=== PATIENT | female | born 1985 | race Caucasian/White ===

== ENCOUNTER → 2018-07-14 09:14 | Outpatient (CLI) | payer OTHER, SELFPAY ==
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
== END ==
PROVIDERS: PCP Internal Medicine
DX: M25.551 Pain in right hip (principal)
CPT/HCPCS: 73502

== ENCOUNTER → 2018-09-07 15:46 | Outpatient (CLI) | payer OTHER, BC, SELFPAY ==
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
== END ==
PROVIDERS: Family Provider Internal Medicine; PCP Internal Medicine; Visit Provider Physician Assistant
DX: M54.5 Low back pain (principal)
CPT/HCPCS: 72148; 76376

== ENCOUNTER 2018-10-27 16:30 | Outpatient (RCR) | payer OTHER, BC, SELFPAY | END 2018-10-27 16:35 | disposition home or self-care (01) | LOC: PT 16:30 | PROVIDERS: Family Provider Internal Medicine; PCP Internal Medicine; Visit Provider Orthopaedic Surgery Hand Surgery | DX: M25.551 Pain in right hip (principal) | CPT/HCPCS: 97010; 97012; 97014; 97033; 97035; 97110; 97140; 97163; 97164; G0283 ==

== ENCOUNTER → 2018-12-21 15:43 | Outpatient (POV) | payer SELFPAY | PROVIDERS: Visit Provider Dermatology | DX: Z00.00 Encounter for general adult medical examination without abnormal findings (principal) ==

== ENCOUNTER → 2019-01-13 09:34 | Outpatient (CLI) | payer OTHER, BC, SELFPAY ==
--- NOTE | 2019-01-13 09:37 | MR_ITS ---
MR hip RT wo con HISTORY: Constant right hip pain ITS.REASON: RIGHT HIP PAIN ORDERING PHYSICIAN: Jam Nicole PATIENT AGE: 33 years COMPARISON: 07/14/2018 TECHNIQUE: Routine multiplanar multiecho sequences are performed without contrast FINDINGS: No fracture or dislocation. No evidence of avascular necrosis. No bone marrow edema. No hip joint effusion. No significant degenerative change. Unremarkable appearance of the adjacent soft tissues IMPRESSION: Negative MRI of the right hip
== END ==
PROVIDERS: PCP Internal Medicine; Visit Provider Orthopaedic Surgery
DX: M25.551 Pain in right hip (principal)
CPT/HCPCS: 73721

== ENCOUNTER → 2020-06-01 13:02 | Outpatient (CLI) | payer BC, SELFPAY ==
--- NOTE | 2020-06-01 | XR_ITS ---
PROCEDURE: XR HIP RT 2-3V W/PELVIS CLINICAL INDICATION: RIGHT HIP PAIN COMPARISON: HIPCMRT XR hip RT 2-3V w/pelvis from 07/14/2018 FINDINGS: No fracture or dislocation is evident. No significant degenerative change. No lytic or blastic change. Unremarkable soft tissues. There is an IUD in place IMPRESSION: Negative right hip Dictated by: Archie Altman MD 06/01/2020 14:47 Electronically signed by Archie Altman MD in [place] 06/01/2020 14:47
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
--- NOTE | 2020-06-01 13:30 | IR_ITS ---
PROCEDURE: IR ARTHROGRAM HIP RT CLINICAL INDICATION: RIGHT HIP PAIN COMPARISON: HIPCMRT XR hip RT 2-3V w/pelvis from 07/14/2018 HIPRTWO MR hip RT wo con from 01/13/2019 MR HIP RT W CON from 06/01/2020 FINDINGS: Fluoroscopy time: 1 minutes and 27 seconds Technique: Following obtaining informed consent and time-out procedure with fluoroscopic guidance and local anesthesia with 1 percent buffered lidocaine, a 22 gauge spinal needle was inserted into the right hip joint capsule via the anterior approach. Approximately 10 mL of a mixture of Optiray 320, gadolinium and 1 %lidocaine was injected into the hip joint. The patient tolerated the procedure well without evidence of immediate complication. The patient was then taken to MRI where MR arthrogram protocol images were performed There was normal localization of contrast within the right hip joint capsule and within the hip. Contrast flowed freely. IMPRESSION: Unremarkable right hip arthrogram. Please see MRI arthrogram report for further detail. Dictated by: Archie Altman MD 06/06/2020 09:55 Electronically signed by Archie Altman MD in [place] 06/06/2020 09:55
== END ==
PROVIDERS: PCP Internal Medicine; Visit Provider Physical Medicine & Rehabilitation
DX: M25.551 Pain in right hip (principal)
CPT/HCPCS: 73502; 73525; 73722; Q9967

== ENCOUNTER → 2020-07-25 16:37 | Outpatient (CLI) | payer BC, SELFPAY ==
[2020-07-27 13:18] LABS: Covid-19 Nasal PCR Sendout Lex NOT DETECTED
== END ==
PROVIDERS: PCP Internal Medicine; Visit Provider Nurse Practitioner Family
DX: Z03.818 Encounter for observation for suspected exposure to other biological agents ruled out (principal)
CPT/HCPCS: U0004

== ENCOUNTER 2020-07-28 20:42 | Emergency (ER) | payer BC, SELFPAY ==
[2020-07-28 20:57] VITALS: BP 110/77; PULSE 96; RESP 20; O2SAT 100; BMI 25.8
--- NOTE | 2020-07-28 21:00 | HMH.EDUTC ---
[facility] Disposition Clinical Impression: Sore throat Sinusitis Qualifiers: Sinusitis location: unspecified location Chronicity: unspecified Qualified Code(s): J32.9 - Chronic sinusitis, unspecified Disposition: Home, Self-Care Condition on Discharge: Good Instructions: Sinusitis, Sinus Headache, DI for Sinusitis, Amoxicillin and Clavulanic Acid Additional Instructions: *Monitor Temp, Over the counter Motrin or Tylenol as directed/as needed Tylenol every 4 hours and Motrin every 6 hours (as long as your family doctor has told you that you can take it) for fever or pain. and straight to ER if unable to lower temp less than 101.0 after medication given *Warm salt water gargles may help to soothe the throat *Throat Lozenges *Warm fluids like tea with honey may help to soothe the throat *Sleep elevated *Humidifier/Vaporizer *Flonase 2 sprays in each nostril daily but be aware that it may take 2-3 days before you notice improvement Start Augmentin tomorrow and Take medication as prescribed Your throat swab was sent for culture. Those results are typically sent to your primary care. Be sure to follow up in 2-3 days with your family doctor/primary care physician if no improvement so they can review those result and treat if necessary. If you don?t have a primary care doctor, I recommend you get one but in the mean time, you will have to return to a walk in clinic Follow up IMMEDIATELY for new or worsening symptoms or no Noticeable improvement over the next 48-72 hours. 911 for difficulty breathing or swallowing Prescriptions: Amoxicillin/Potassium Clav [Augmentin 875-125 Tablet] 1 tab PO Q12H 7 Days #14 tab Transmission Status: Received by [facility] Fluticasone Propionate [Flonase 50mcg nasal spray 16gm] 1 - 2 spr NS DAILY #1 bottle Transmission Status: Received by [facility] Referrals: Steve Pryor [Primary Care Provider] - As needed Time of Disposition: 21:13 Medical Decision Making - [place] Inquiry Pt receiving controlled substance: No [place] was queried for this patient: No Vital Signs: 07/28/20 20:57 07/28/20 21:20 Temperature 98 F Pulse Rate 96 H Pulse Rate [Right Brachial] 96 H Respiratory Rate 20 20 Blood Pressure 110/77 Blood Pressure [Right Arm] 110/77 Blood Pressure Mean [Right Arm] 88 Blood Pressure Source [Right Arm] Automatic Cuff Blood Pressure Position [Right Arm] Sitting 02 Sat by Pulse Oximetry 100 Oxygen Delivery Method Room Air - Lab Data Lab results reviewed: Yes: I reviewed the patient's lab results. Orders (Tests/Meds): ED MEDICATIONS Discontinued Medications Generic Name Dose Route Start Last Admin Trade Name Isai PRN Reason Stop Dose Admin Ceftriaxone Sodium 1 gm 07/28/20 21:02 07/28/20 21:18 Rocephin 1gm Vial IM 07/28/20 21:03 1 gm ONCE ONE Administration Protocol Lidocaine HCl 0 ml 07/28/20 21:02 07/28/20 21:18 Lidocaine 1% 10ml Mdv IM 07/28/20 21:03 2.1 ml ONCE ONE Administration Methylprednisolone Sodium Succinate 125 mg 07/28/20 21:02 07/28/20 21:18 Solu-Medrol 125mg/2ml Vial IM 07/28/20 21:03 125 mg ONCE ONE Administration Medical Decision Narrative: Patient denies [facility] HPI - General Stated complaint: sore throat,cough Time Seen by Provider: 07/28/20 21:00 Mode of Arrival: Ambulatory Source of Information: Patient Limitations: No Limitations Description of Symptoms (Recalled from Triage Doc. by RN): PATIENT C/O CONGESTION, SORE THROAT, AND DRY COUGH X 2 DAYS HEENT Symptoms (Recalled from RN notes): Yes Resp Symptoms (Recalled from RN notes): Yes Skin Symptoms (Recalled from RN notes): No MS Symptoms (Recalled from RN notes): No Functional Status (Recalled from RN notes): WNL - Related Data Home Medications Medication Instructions Recorded Confirmed Lisdexamfetamine Dimesylate 60 mg PO DAILY 01/02/19 10/03/19 [Vyvanse] Dextroamphetamine/Amphetamine 20 mg PO DAILY
[2020-07-28 21:20] VITALS: BP 110/77; PULSE 96; RESP 20; TEMP 36.6; O2SAT 100
[2020-07-28 21:23] LABS: UTC Strep Screen (Rapid) Negative (Negative)
== END 2020-07-28 21:30 | disposition home or self-care (01) ==
PROVIDERS: Emergency Provider Nurse Practitioner; PCP Internal Medicine
DX: J02.9 Acute pharyngitis, unspecified (principal); J32.9 Chronic sinusitis, unspecified
CPT/HCPCS: 87880; 96372; 99201

== ENCOUNTER → 2020-10-11 19:16 | Outpatient (CLI) | payer BC, SELFPAY | PROVIDERS: PCP Physician Assistant; Visit Provider Physician Assistant | DX: Z03.818 Encounter for observation for suspected exposure to other biological agents ruled out (principal) | CPT/HCPCS: U0003 ==

== ENCOUNTER 2020-12-28 11:00 | Outpatient (RCR) | payer BC, SELFPAY | END 2020-12-28 11:05 | disposition home or self-care (01) | LOC: PT 11:00 | PROVIDERS: PCP Physician Assistant; Visit Provider Orthopaedic Surgery Adult Reconstructive Orthopaedic Surgery | DX: M25.851 Other specified joint disorders, right hip; Z98.890 Other specified postprocedural states | CPT/HCPCS: 97010; 97014; 97110; 97163; G0283 ==

== ENCOUNTER → 2021-09-30 10:05 | Outpatient (CLI) | payer BC, SELFPAY | PROVIDERS: Visit Provider Nurse Practitioner | DX: Z20.822 Contact with and (suspected) exposure to COVID-19 (principal); U07.1 COVID-19 | CPT/HCPCS: C9803; U0003; U0005 ==

== ENCOUNTER → 2023-08-20 23:38 | Outpatient (CLI) | payer BC, MEDICAID, SELFPAY ==
[2023-08-20 18:58] LABS: Basophils % 0.5 % (0.1-2.0); Eosinophils # 0.4 K/mm3 (0.0-0.4); Eosinophils % 4.5 % (0.1-12.0); Hematocrit 42.7 % (37.0-47.0); Hemoglobin 13.6 g/dL (12.2-16.2); Lymphocytes # 2.4 K/mm3 (0.7-4.5); Lymphocytes % 28.7 % (10-50); Mean Corpuscular HGB Conc 31.8 g/dL (31.8-35.4); Mean Corpuscular Hemoglobin 29.4 pg (27.0-31.2); Mean Corpuscular Volume 92.3 fl (81-99); Mean Platelet Volume 7.9 fl (7.4-10.4); Monocytes # 0.5 K/mm3 (0.1-1.0); Monocytes % 6.2 % (1.7-9.3); Neutrophils # 5.1 K/mm3 (1.8-7.8); Neutrophils % 60.1 % (37.0-80.0); Platelet Count 335 K/mm3 (142-424); Red Blood Count 4.63 M/mm3 (4.20-5.40); Red Cell Distribution Width 13.1 % (11.5-17.5); White Blood Count 8.5 K/mm3 (4.8-10.8)
[2023-08-20 19:25] LABS: Alanine Aminotransferase 30 U/L (12-78); Albumin Level 4.3 g/dl (3.5-5.0); Albumin/Globulin Ratio 1.4 (1.1-1.8); Alkaline Phosphatase 95 U/L (38-126); Aspartate Amino Transferase 28 U/L (14-36); Bilirubin,Total 0.4 mg/dl (0.2-1.3); Blood Urea Nitrogen 11 mg/dl (7-17); Calcium 8.7 mg/dl (8.4-10.2); Carbon Dioxide 26 mmol/L (22.0-30.0); Chloride 102 mmol/L (98-107); Chol/HDL Ratio 2.6 (1-3.5); Cholesterol 176 mg/dl (140-200); Estimated Glomerular Filt Rate 113 ml/min (>60); GFR (African American) 137 ML/MIN (>60); Glucose 80 mg/dl (74-100); HDL Cholesterol 68 mg/dl (40-60); Magnesium 2.1 mg/dl (1.6-2.3); Sodium 139 mmol/L (136-145); Total Protein,Serum 7.3 g/dl (6.3-8.2); Triglycerides 82 mg/dl (30-150); VLDL Cholesterol 16 mg/dL (0-40)
[2023-08-20 19:36] LABS: Direct LDL Cholesterol 80.27 mg/dL (100-129)
[2023-08-20 19:45] LABS: 25-OH Vitamin D, Total 26.3 ng/mL (30-100)
[2023-08-20 19:57] LABS: Thyroid Stimulating Hormone 1.54 uIU/mL (0.465-4.68)
[2023-08-20 20:17] LABS: Vitamin B12 382 pg/mL (239-931)
== END ==
PROVIDERS: PCP Physician Assistant; Visit Provider Physician Assistant
DX: G43.909 Migraine, unspecified, not intractable, without status migrainosus (principal); R20.0 Anesthesia of skin; R20.2 Paresthesia of skin; E55.9 Vitamin D deficiency, unspecified
CPT/HCPCS: 80053; 80061; 82306; 82607; 83735; 84443; 85025

== ENCOUNTER → 2023-09-15 14:20 | Outpatient (CLI) | payer BC, MEDICAID, SELFPAY ==
--- NOTE | 2023-09-15 14:20 | MR_ITS ---
FINAL REPORT CLINICAL HISTORY: phantosmia migraines with floaters FINDINGS: Multiplanar MR imaging of the brain was performed without contrast. There is no evidence of intracranial hemorrhage or mass. The ventricular size is normal. There is no evidence of shift of the midline structures. No abnormal extra-axial fluid collection is identified. The posterior fossa and brainstem have an unremarkable appearance. No area of abnormal restricted diffusion is identified. Normal major vessel vascular flow voids are seen. There is mucosal thickening of the sinuses. IMPRESSION: Unremarkable brain with no acute intracranial abnormality. Reviewed, Interpreted and Dictated by Colin Gunn III, MD Transcribed by Silke Nelson Authenticated and [facility]
== END ==
PROVIDERS: PCP Physician Assistant; Visit Provider Physician Assistant
DX: R44.2 Other hallucinations (principal)
CPT/HCPCS: 70551

== ENCOUNTER 2024-03-15 15:29 | Outpatient (POV) | payer BC, MEDICAID, SELFPAY | END 2024-03-15 23:59 | disposition home or self-care (01) | LOC: SC 15:29 | PROVIDERS: PCP Physician Assistant; Visit Provider Dermatology | DX: Z00.00 Encounter for general adult medical examination without abnormal findings (principal) ==

== ENCOUNTER 2025-02-24 19:39 | Emergency (ER) | payer BC, SELFPAY ==
--- NOTE | 2025-02-24 19:47 | ED_ITS ---
Discharge Plan Disposition Patient Disposition: Home, Self-Care Condition: Good Prescriptions Prescriptions: New ondansetron 4 mg tablet,disintegrating 4 mg PO QID PRN (Reason: nausea and vomiting) Qty: 10 0RF No Action sumatriptan succinate 100 mg tablet See Rx Instructions PO .COMPLEX Qty: 10 2RF Rx Instructions: take 1 tab at onset of headache; if no relief, may repeat 1 tab after at least 2 hrs; max = 2 tabs/24 hrs PO cholecalciferol (vitamin D3) 50 mcg (2,000 unit) capsule 50 mcg PO DAILY Qty: 90 3RF ergocalciferol (vitamin D2) 1,250 mcg (50,000 unit) capsule 1,250 mcg PO WEEKLY Qty: 14 3RF Referrals Follow up/Referrals: Zohra Bazzi PA [Primary Care Provider] - See instructions Activity Restrictions/Add. Instructions Additional Instructions/Restrictions: As we discussed I have sent in a prescription for Zofran to your pharmacy. I recommend a brat diet which is bananas rice applesauce toast until you tolerate that and advance your diet as tolerated. If you have continued new or worsening signs or symptoms follow-up with your PCP return to the ER as needed. Clinical Impressions Clinical Impression: Enteritis Instructions Patient Instructions: DI for Diarrhea and Traveler's Diarrhea -- Adult, DI for Diarrhea and Traveler's Diarrhea -- Child, DI for Nausea -- Adult, DI for Nausea -- Child Print Language Print Language: Burundian Discharge ED Provider: Myke Fowler General Adult HPI <CARSON Jones - Last Filed: 02/24/25 22:03> General Chief complaint: Nausea/Vomiting/Diarrhea Stated complaint: stomach pain, unable to eat or drink Time Seen by Provider: 02/24/25 19:47 History of Present Illness HPI narrative: Patient presents for evaluation of abdominal pain. Patient states that she began having abdominal pain on Thursday. The pain is progressed to constant and diffuse. Patient developed diarrhea on Thursday and has continued to have diarrhea since. She is unable to eat or drink because increases the pain. She denies however vomiting but does endorse nausea. She denies chest pain shortness of breath fever chills mops this much easier melena hematemesis hematuria. She is status post cholecystectomy appendectomy and partial colectomy. Related Data Previous Rx's ?Medication ?Instructions ?Recorded cholecalciferol (vitamin D3) 50 50 mcg PO DAILY #90 caps 08/25/23 mcg (2,000 unit) capsule ergocalciferol (vitamin D2) 1,250 1,250 mcg PO WEEKLY #14 caps 08/25/23 mcg (50,000 unit) capsule sumatriptan succinate 100 mg tablet See Rx Instructions PO .COMPLEX 10/19/23 #10 tabs ondansetron 4 mg disintegrating 4 mg PO QID PRN nausea and 02/24/25 tablet vomiting #10 tabs Allergies Allergy/AdvReac Type Severity Reaction Status Date / Time levofloxacin (From [facility]) Allergy Verified 12/15/23 15:24 [facility] <CARSON Jones - Last Filed: 02/24/25 22:03> [facility] Disclaimer: The information contained in this section may have been updated after the patient was seen, as this information can be updated by other users. Medical History Endometriosis Gall bladder stones Surgical History History of appendectomy History of arthroscopic knee surgery History of cholecystectomy History of colon resection Family History Other Alcoholism Asthma Cancer Diabetes FHx: mental illness Hypertension Kidney disease Substance abuse Thyroid disorder Social History Smoking Status: Current every day smoker tobacco type: cigarettes packs per day: 1 smoking status stop date: 3 yrs ago alcohol intake: never current occupational status: other Travel in the last 8 weeks: None marital status: Have you lived/traveled outside [place] in past 30 days?: No Contact w/someone who lives/traveled outside US past 30 days?: No Exposure to someone with infectious disease in past 14 days?: No Do you have a fever (greater than 100.4 F or 38 C)?: No Have you tested positive for COVID-19: No Exposed to someone with COVID-19 in past 14 days?: No Do you have a sore throat?: No Do you have a cough?: No Do you have any weakness?: No Do you have any diarrhea?: No Are you experiencing any unusual bleeding?: No Do you have any muscle aches/pain?: No Do you have any abdominal pain?: No Are you experiencing loss of taste or smell?: No Other Medical History Have you received the Flu Vaccine for this season: No Have you received the Pneumonia Vaccine: No <CARSON Jones - Last Filed: 02/24/25 22:03> ROS Obtained: Yes Systems reviewed as appropriate & no additional complaints except as documented Physical Exam <CARSON Jones - Last Filed: 02/24/25 22:03> General General appearance: alert and in no apparent distress Respiratory Respiratory exam: Present normal lung sounds bilaterally and accessory muscle use Cardiovascular Cardiovascular exam: Present regular rate Neurological Exam Neurological exam: Present alert and oriented X3 Medical Decision Making <CARSON Jones - Last Filed: 02/24/25 22:03> Medical Records Medical records reviewed: Yes I reviewed the patient's medical records. Screening: Per USPSTF and CDC recommendations, given the prevalence of disease in our region, it is our hospital?s policy to screen for HIV and viral Hepatitis for all patients aged 18 and over and those with ongoing risk factors. [facility] Inquiry Pt receiving controlled substance: No Vital Signs: 02/24/25 19:54 02/24/25 20:30 02/24/25 21:02 Temperature 97.5 F L Temperature Source Oral Pulse Rate 105 H 92 H Pulse Rate [Right Radial] 100 H Respiratory Rate 18 Blood Pressure 124/85 95/55 L Blood Pressure [Left Arm] 105/73 L Blood Pressure Mean [Left Arm] 83 Blood Pressure Source Blood Pressure Source [Left Arm] Automatic Cuff Blood Pressure Position Blood Pressure Position [Left Arm] Sitting 02 Sat by Pulse Oximetry 99 98 98 Oxygen Delivery Method Room Air Room Air Room Air 02/24/25 22:00 02/24/25 22:24 Temperature 97.5 F L Temperature Source Oral Pulse Rate 87 107 H Pulse Rate [Right Radial] Respiratory Rate 18 Blood Pressure 124/85 Blood Pressure [Left Arm] Blood Pressure Mean [Left Arm] Blood Pressure Source Automatic Cuff Blood Pressure Source [Left Arm] Blood Pressure Position Supine Blood Pressure Position [Left Arm] 02 Sat by Pulse Oximetry 98 Oxygen Delivery Method Room Air Room Air Lab Data Lab results reviewed: Yes I reviewed the patient's lab results. Lab Results 02/24/25 20:15: WBC 10.5, RBC 4.85, Hgb 14.4, Hct 41.9, MCV 86.4, MCH 29.7, MCHC 34.4, RDW 12.0, Plt Count 329, MPV 9.1, Neut % (Auto) 74.0, Lymph % (Auto) 13.1, [place] % (Auto) 7.2, Eos % (Auto) 5.0, Baso % (Auto) 0.5, Neut # (Auto) 7.8, Lymph # (Auto) 1.4, [place] # (Auto) 0.8, Eos # (Auto) 0.5 H, Baso # (Auto) 0.1, Sodium 134 L, Potassium 3.7, Chloride 100, Carbon Dioxide 20 L, Anion Gap 17.7 H, BUN 7, Creatinine 0.60, Estimated Creat Clear 127, Estimated GFR 112, Est GFR ( Amer) 135, Glucose 73 L, Lactate 0.8, Calcium 9.2, Magnesium 2.3, Total Bilirubin 1.4 H, AST 25, ALT 17, Alkaline Phosphatase 50, Total Protein 7.8, Albumin 4.5, Globulin 3.3 H, Albumin/Globulin Ratio 1.4, Lipase 25, Procalcitonin 0.053, Serum HCG, Qual Negative, HCV Ab RYAN w/Rflx PCR Qn Negative, HIV Ag/Ab Combo Qual Negative 02/24/25 21:20: Urine Color Yellow, Urine Appearance Clear, Urine pH 6.0, Ur Specific [address] <= 1.005, Urine Protein Negative, Urine Glucose (UA) Negative, Urine Ketones 3+, Urine Blood Trace-i, Urine Nitrate Negative, Urine Bilirubin Negative, Urine Urobilinogen 0.2, Ur Leukocyte Esterase Negative, Urine RBC None, Urine WBC None, Ur Squamous Epith Cells None, Urine Bacteria None 02/24/25 20:15 02/24/25 20:15 Orders (Tests/Meds): ED MEDICATIONS Discontinued Medications Generic Name Dose Route Start Last Admin Trade Name Freq PRN Reason Stop Dose Admin Acetaminophen 1,000 mg 02/24/25 20:00 02/24/25 20:25 Acetaminophen 1,000mg/100ml Vial IV 02/24/25 20:01 1,000 mg ONCE ONE Administration Hydromorphone HCl 0.5 mg 02/24/25 21:16 02/24/25 21:23 Hydromorphone 2mg/Ml Syringe IV 02/24/25 21:17 0.5 mg ONCE ONE Administration Sodium Chloride 1,000 mls @ 999 mls/hr 02/24/25 20:00 02/24/25 20:26 Sod Chlor 0.9% 1000ml Bag IV 02/24/25 21:00 999 mls/hr .Q1H1M ONE Administration Iopamidol 75 ml 02/24/25 20:51 02/24/25 20:52 Iopamidol-370 (76%);100ml Bottle IV 02/24/25 20:52 75 ml ONCE ONE Administration Ketorolac Tromethamine 15 mg 02/24/25 20:00 02/24/25 20:25 Ketorolac 30mg/Ml Vial IV 02/24/25 20:01 15 mg ONCE ONE Administration Ondansetron HCl 4 mg 02/24/25 20:00 02/24/25 20:25 Ondansetron 4mg/2ml Vial IV 02/24/25 20:01 4 mg ONCE ONE Administration Sodium Chloride 10 ml 02/24/25 20:51 02/24/25 20:51 Sodium Chloride 0.9% 10ml Syr (Rad Only) IV 02/24/25 20:52 10 ml ONCE ONE Administration ORDERS Category Date Time Status CT abdomen pelvis w con Stat Cat Scan 02/24/25 20:00 Completed CBC w/Auto Diff [Complete Blood Count Auto Diff] Stat Lab 02/24/25 20:15 Completed CMP [Comprehensive Metabolic Panel] Stat Lab 02/24/25 20:15 Completed HCG Qualitative, Serum Stat Lab 02/24/25 20:15 Completed HIV Combo Stat Lab 02/24/25 20:15 Completed Hepatitis C Ab Qual. W/ RFX Stat Lab 02/24/25 20:15 Completed Lactic Acid Stat Lab 02/24/25 20:15 Completed Lipase Stat Lab 02/24/25 20:15 Completed Magnesium Stat Lab 02/24/25 20:15 Completed Procalcitonin Stat Lab 02/24/25 20:15 Completed UA [Urinalysis and Microscopic] Stat Lab 02/24/25 21:20 Completed Medical Decision Narrative: In summary patient is a 39-year-old female who presents to the emergency department for evaluation of abdominal pain. Patient is hemodynamically stable upon arrival, afebrile. Physical exam is remarkable for a mildly diffusely moderately tender abdomen to palpation but there is no rebound no guarding no rigidity no guarding. Bowel sounds normal active.. Differential diagnosis includes viral bacterial gastroenteritis versus bowel obstruction versus kidney stone or urinary tract infection etc. Initial workup will be conducted with hematologic labs urinalysis CT scan abdomen pelvis. Initial interventions include crystalloid bolus Toradol Tylenol Zofran. Initial workup reviewed by me and her hematologic labs are nonactionable including a normal white count normal H&H no neutrophilic shift normal electrolytes normal lipase normal procalcitonin plan urinalysis in my informal interpretation of her CT scan abdomen pelvis shows fluid-filled small and large bowels but no evidence of obstruction or acute intra-abdominal processes.. Upon repeat evaluation patient reported improvement in her nausea but still was having pain. Given this I gave her a one-time dose of Dilaudid as well. Upon reassessment patient reports that her pain is much improved now with nausea controlled. Given this paper patient is appropriate for discharge with close follow-up with PCP for continued new or worsening signs or symptoms a prescription for Zofran sent to her pharmacy and recommendation should she have any worsening symptoms to return to the emergency department. <Myke Fowler MD - Last Filed: 02/24/25 23:22> Vital Signs: 02/24/25 19:54 02/24/25 20:30 02/24/25 21:02 Temperature 97.5 F L Temperature Source Oral Pulse Rate 105 H 92 H Pulse Rate [Right Radial] 100 H Respiratory Rate 18 Blood Pressure 124/85 95/55 L Blood Pressure [Left Arm] 105/73 L Blood Pressure Mean [Left Arm] 83 Blood Pressure Source Blood Pressure Source [Left Arm] Automatic Cuff Blood Pressure Position Blood Pressure Position [Left Arm] Sitting 02 Sat by Pulse Oximetry 99 98 98 Oxygen Delivery Method Room Air Room Air Room Air 02/24/25 22:00 02/24/25 22:24 Temperature 97.5 F L Temperature Source Oral Pulse Rate 87 107 H Pulse Rate [Right Radial] Respiratory Rate 18 Blood Pressure 124/85 Blood Pressure [Left Arm] Blood Pressure Mean [Left Arm] Blood Pressure Source Automatic Cuff Blood Pressure Source [Left Arm] Blood Pressure Position Supine Blood Pressure Position [Left Arm] 02 Sat by Pulse Oximetry 98 Oxygen Delivery Method Room Air Room Air Lab Data Lab Results 02/24/25 20:15: WBC 10.5, RBC 4.85, Hgb 14.4, Hct 41.9, MCV 86.4, MCH 29.7, MCHC 34.4, RDW 12.0, Plt Count 329, MPV 9.1, Neut % (Auto) 74.0, Lymph % (Auto) 13.1, Clayton % (Auto) 7.2, Eos % (Auto) 5.0, Baso % (Auto) 0.5, Neut # (Auto) 7.8, Lymph # (Auto) 1.4, [place] # (Auto) 0.8, Eos # (Auto) 0.5 H, Baso # (Auto) 0.1, Sodium 134 L, Potassium 3.7, Chloride 100, Carbon Dioxide 20 L, Anion Gap 17.7 H, BUN 7, Creatinine 0.60, Estimated Creat Clear 127, Estimated GFR 112, Est GFR ( Amer) 135, Glucose 73 L, Lactate 0.8, Calcium 9.2, Magnesium 2.3, Total Bilirubin 1.4 H, AST 25, ALT 17, Alkaline Phosphatase 50, Total Protein 7.8, Albumin 4.5, Globulin 3.3 H, Albumin/Globulin Ratio 1.4, Lipase 25, Procalcitonin 0.053, Serum HCG, Qual Negative, HCV Ab RYAN w/Rflx PCR Qn Negative, HIV Ag/Ab Combo Qual Negative 02/24/25 21:20: Urine Color Yellow, Urine Appearance Clear, Urine pH 6.0, Ur Specific [address] <= 1.005, Urine Protein Negative, Urine Glucose (UA) Negative, Urine Ketones 3+, Urine Blood Trace-i, Urine Nitrate Negative, Urine Bilirubin Negative, Urine Urobilinogen 0.2, Ur Leukocyte Esterase Negative, Urine RBC None, Urine WBC None, Ur Squamous Epith Cells None, Urine Bacteria None Orders (Tests/Meds): ED MEDICATIONS Discontinued Medications Generic Name Dose Route Start Last Admin Trade Name Freq PRN Reason Stop Dose Admin Acetaminophen 1,000 mg 02/24/25 20:00 02/24/25 20:25 Acetaminophen 1,000mg/100ml Vial IV 02/24/25 20:01 1,000 mg ONCE ONE Administration Hydromorphone HCl 0.5 mg 02/24/25 21:16 02/24/25 21:23 Hydromorphone 2mg/Ml Syringe IV 02/24/25 21:17 0.5 mg ONCE ONE Administration Sodium Chloride 1,000 mls @ 999 mls/hr 02/24/25 20:00 02/24/25 20:26 Sod Chlor 0.9% 1000ml Bag IV 02/24/25 21:00 999 mls/hr .Q1H1M ONE Administration Iopamidol 75 ml 02/24/25 20:51 02/24/25 20:52 Iopamidol-370 (76%);100ml Bottle IV 02/24/25 20:52 75 ml ONCE ONE Administration Ketorolac Tromethamine 15 mg 02/24/25 20:00 02/24/25 20:25 Ketorolac 30mg/Ml Vial IV 02/24/25 20:01 15 mg ONCE ONE Administration Ondansetron HCl 4 mg 02/24/25 20:00 02/24/25 20:25 Ondansetron 4mg/2ml Vial IV 02/24/25 20:01 4 mg ONCE ONE Administration Sodium Chloride 10 ml 02/24/25 20:51 02/24/25 20:51 Sodium Chloride 0.9% 10ml Syr (Rad Only) IV 02/24/25 20:52 10 ml ONCE ONE Administration ORDERS Category Date Time Status CT abdomen pelvis w con Stat Cat Scan 02/24/25 20:00 Completed CBC w/Auto Diff [Complete Blood Count Auto Diff] Stat Lab 02/24/25 20:15 Completed CMP [Comprehensive Metabolic Panel] Stat Lab 02/24/25 20:15 Completed HCG Qualitative, Serum Stat Lab 02/24/25 20:15 Completed HIV Combo Stat Lab 02/24/25 20:15 Completed Hepatitis C Ab Qual. W/ RFX Stat Lab 02/24/25 20:15 Completed Lactic Acid Stat Lab 02/24/25 20:15 Completed Lipase Stat Lab 02/24/25 20:15 Completed Magnesium Stat Lab 02/24/25 20:15 Completed Procalcitonin Stat Lab 02/24/25 20:15 Completed UA [Urinalysis and Microscopic] Stat Lab 02/24/25 21:20 Completed Medical Decision Narrative: In summary patient is a 39-year-old female who presents to the emergency department for evaluation of abdominal pain. Patient is hemodynamically stable upon arrival, afebrile. Physical exam is remarkable for a mildly diffusely moderately tender abdomen to palpation but there is no rebound no guarding no rigidity no guarding. Bowel sounds normal active.. Differential diagnosis includes viral bacterial gastroenteritis versus bowel obstruction versus kidney stone or urinary tract infection etc. Initial workup will be conducted with hematologic labs urinalysis CT scan abdomen pelvis. Initial interventions include crystalloid bolus Toradol Tylenol Zofran. Initial workup reviewed by me and her hematologic labs are nonactionable including a normal white count normal H&H no neutrophilic shift normal electrolytes normal lipase normal procalcitonin plan urinalysis in my informal interpretation of her CT scan abdomen pelvis shows fluid-filled small and large bowels but no evidence of obstruction or acute intra-abdominal processes.. Upon repeat evaluation patient reported improvement in her nausea but still was having pain. Given this I gave her a one-time dose of Dilaudid as well. Upon reassessment patient reports that her pain is much improved now with nausea controlled. Given this paper patient is appropriate for discharge with close follow-up with PCP for continued new or worsening signs or symptoms a prescription for Zofran sent to her pharmacy and recommendation should she have any worsening symptoms to return to the emergency department. I was consulted by the SOFIA, and we discussed the complexity of the problems being addressed. I approved the treatment and management plan for this patient's care in the emergency department, thus performing a substantive portion of the medical decision making. Myke Fowler MD Critical Care <CARSON Jones - Last Filed: 02/24/25 22:03> Critical Care Time Critical Care Time: No Total Time Total Critical Care Time: 35
[2025-02-24 19:54] VITALS: BP 105/73; PULSE 100; RESP 18; TEMP 36.4; O2SAT 99; BMI 24.7
--- NOTE | 2025-02-24 20:00 | CT_ITS ---
PROCEDURE INFORMATION: Exam: CT Abdomen And Pelvis With Contrast Exam date and time: 02/24/2025 8:50 PM Age: 39 years old Clinical indication: Abdominal pain; Additional info: Acute abdominal pain TECHNIQUE: Imaging protocol: Computed tomography of the abdomen and pelvis with contrast. Radiation optimization: All CT scans at this facility use at least one of these dose optimization techniques: automated exposure control; mA and/or kV adjustment per patient size (includes targeted exams where dose is matched to clinical indication); or iterative reconstruction. Contrast material: ISOVUE; Contrast volume: 75 ml; Contrast route: IV; COMPARISON: CT ABDOMEN PELVIS WO CON 09/19/2019 9:07 PM FINDINGS: Lungs: 0.9 cm calcified granuloma in the right lower lobe. Liver: Normal. No mass. Gallbladder and biliary ducts: Cholecystectomy. No bile duct dilatation. Pancreas: Normal. No ductal dilation. Spleen: Normal. No splenomegaly. Adrenal glands: Normal. No mass. Kidneys and ureters: Normal. No hydronephrosis. Stomach and bowel: Bowel surgical staple line in the left lower quadrant. No obstruction. No mucosal thickening. Appendix: No evidence of appendicitis. Intraperitoneal space: Multiple surgical clips in the upper abdomen. Vasculature: Unremarkable. No abdominal aortic aneurysm. Lymph nodes: Unremarkable. No enlarged lymph nodes. Urinary bladder: Unremarkable as visualized. Reproductive: IUD in place. Retroverted uterus. Bones/joints: Unremarkable. No acute fracture. Soft tissues: Unremarkable. IMPRESSION: No acute findings.
[2025-02-24] MEDS: ACETAMINOPHEN 1,000MG/100ML VIAL 1000 MG IV (20:25)
[2025-02-24] MEDS: ONDANSETRON 4MG/2ML VIAL 4 MG IV (20:25)
[2025-02-24] MEDS: KETOROLAC 30MG/ML VIAL 15 MG IV (20:25)
[2025-02-24 20:26] LABS: Basophils # 0.1 K/mm3 (0-0.2); Basophils % 0.5 % (0.1-2.0); Eosinophils # 0.5 K/mm3 (0.0-0.4); Hematocrit 41.9 % (37.0-47.0); Hemoglobin 14.4 g/dL (12.2-16.2); Lymphocytes # 1.4 K/mm3 (0.7-4.5); Lymphocytes % 13.1 % (10-50); Mean Corpuscular HGB Conc 34.4 g/dL (31.8-35.4); Mean Corpuscular Hemoglobin 29.7 pg (27.0-31.2); Mean Corpuscular Volume 86.4 fl (81-99); Mean Platelet Volume 9.1 fl (7.4-10.4); Monocytes # 0.8 K/mm3 (0.1-1.0); Monocytes % 7.2 % (1.7-9.3); Neutrophils # 7.8 K/mm3 (1.8-7.8); Platelet Count 329 K/mm3 (142-424); Red Blood Count 4.85 M/mm3 (4.20-5.40); White Blood Count 10.5 K/mm3 (4.8-10.8)
[2025-02-24] MEDS: 0.9 % SODIUM CHLORIDE 1000ML 1,000 ML 999 ML IV (20:26)
[2025-02-24 20:30] VITALS: BP 124/85; PULSE 105; O2SAT 98
[2025-02-24 20:38] LABS: HCG Qualitative, Serum Negative (Negative)
[2025-02-24 20:40] LABS: Alanine Aminotransferase 17 U/L (12-78); Albumin Level 4.5 g/dl (3.5-5.0); Albumin/Globulin Ratio 1.4 (1.1-1.8); Alkaline Phosphatase 50 U/L (38-126); Anion Gap 17.7 mEq/L (5-15); Aspartate Amino Transferase 25 U/L (14-36); Bilirubin,Total 1.4 mg/dl (0.2-1.3); Blood Urea Nitrogen 7 mg/dl (7-17); Calcium 9.2 mg/dl (8.4-10.2); Carbon Dioxide 20 mmol/L (22.0-30.0); Chloride 100 mmol/L (98-107); Creatinine Clearance Estimated 127 mL/min (50-200); Estimated Glomerular Filt Rate 112 ml/min (>60); GFR (African American) 135 ML/MIN (>60); Globulin 3.3 g/dL (1.3-3.2); Glucose 73 mg/dl (74-100); Lactic Acid 0.8 mmol/L (0.7-2.1); Lipase 25 U/L (23-300); Magnesium 2.3 mg/dl (1.6-2.3); Potassium 3.7 mmoL/L (3.5-5.1); Sodium 134 mmol/L (136-145); Total Protein,Serum 7.8 g/dl (6.3-8.2)
[2025-02-24] MEDS: SODIUM CHLORIDE 0.9% 10ML SYR (RAD ONLY) 10 ML IV (20:51)
[2025-02-24] MEDS: IOPAMIDOL-370 (76%);100ML BOTTLE 75 ML IV (20:52)
[2025-02-24 20:57] LABS: Procalcitonin 0.053 ng/mL (0.0-2.0)
[2025-02-24 21:02] VITALS: BP 95/55; PULSE 92; O2SAT 98
[2025-02-24 21:20] LABS: HIV Combo NEGATIVE (Negative)
[2025-02-24] MEDS: HYDROMORPHONE 2MG/ML SYRINGE 0.5 MG IV (21:23)
[2025-02-24 21:28] LABS: Hepatitis C Ab Qual. W/ RFX NEGATIVE (Negative)
[2025-02-24 21:40] LABS: Microscopic, Urine URINE MICROSCOPIC (MICROSCOPIC)
[2025-02-24 21:46] LABS: Appearance,Urine CLEAR (Clear); Bilirubin,Urine Negative (Negative); Blood, Urine TRACE-I (Negative); Color,Urine YELLOW (Yellow); Glucose,Urine (UA) Negative (Negative); Ketones,Urine 3+ (Negative); Leukocyte Esterase,Urine Negative (Negative); Nitrate,Urine Negative (Negative); Protein,Urine Negative (Negative); Specific Gravity, Urine <= 1.005 (1.005-1.030); Urobilinogen,Urine 0.2 EU/dl (0.2)
[2025-02-24 22:00] VITALS: PULSE 87; O2SAT 98
[2025-02-24 22:24] VITALS: BP 124/85; PULSE 107; RESP 18; TEMP 36.4; O2SAT 99
== END 2025-02-24 22:25 | disposition home or self-care (01) ==
PROVIDERS: Physician Assistant; Emergency Provider Emergency Medicine; PCP Physician Assistant
DX: K52.9 Noninfective gastroenteritis and colitis, unspecified (principal); R10.9 Unspecified abdominal pain; R11.0 Nausea; F17.210 Nicotine dependence, cigarettes, uncomplicated
CPT/HCPCS: 74177; 80053; 81001; 83605; 83690; 83735; 84145; 84703; 85025; 86803; 87389; 96374; 96375; 99285; J0131; J1171; J1885; J2405; J7030; Q9967

== ENCOUNTER 2025-10-16 16:16 | Outpatient (CLI) | payer BC, SELFPAY ==
--- OUTSIDE RECORDS SUMMARY | 2025-10-16 16:18 | XMS_ITS | Clinical Summary ---
[facility] Organization [facility] Address [address] [place] [address] Care Team Providers Care Second Hand Name Role Phone Zohra Bazzi Primary Care Provider [phone] Allergies Active Allergy Reactions Criticality Noted Date Comments Levofloxacin Swelling,Rash Low 08/28/2020 Medications No known medications Active Problems Problem Noted Date Diagnosed Date IUD check up 10/11/2024 Family history of breast cancer 10/11/2024 Overview (10/11/2024): Maternal aunt and MGM. She reports she did genetic screening which was negative. Attention deficit hyperactiv ity disorder (ADHD), combined type 05/07/2022 Overview (05/07/2022): On vyvanse and adderal prior to +upt, sees [facility] Resolved Problems Problem Noted Date Diagnosed Date Resolved Date 12/02/2022 01/14/2023 labor in third trime ster with delivery 10/22/2022 01/14/2023 Overview (10/29/2022): S/p steroids 33 wks, procardia AMA (advanced maternal age) multigravida 35+ 01/14/2023 Overview (10/15/2022): cfDNA low risk PDC levon EFW 50%ile 32 wks 05/07/2022 01/14/2023 Overview (05/07/2022): Prev term 7#10oz, 18 years ago H/o atonic colon, s/p partial colectomy 2010 Immunizations Immunization Administration Dates Next Due COVID-19 (MODERNA) 1st,2nd,3rd Dose Monovalent 0 04/03/2021,03/06/2021 Fluzone (or Fluarix & Flulaval for VFC) >6mos Tdap 10/15/2022 Family History Medical History Relation Name Comments Breast cancer Maternal Aunt Alaina Pascal Ovarian cancer Maternal Aunt Alaina Pascal Diabetes Maternal Grandfather Jeevan Son Breast cancer Maternal Grandmother [place] Diabetes Maternal Grandmother [place] Breast cancer Mother Sandi Estevez Hypertension Mother Sandi Estevez Relation Name Status Comments Maternal Aunt Alaina Pascal Maternal Grandfather Jeevan Son Maternal Grandmother [place] Mother Sandi Estevez Social History Tobacco Use Types Packs/Day Years Used Date Smoking Tobacco: Former Cigarettes 2 15 0 11/23/2005 - 11/23/2020 Smokeless Tobacco: Never Tobacco Cessation:Counseling Given: Not Answered Alcohol Use Standard Drinks/Week Comments Not Currently 0 (1 standard drink = 0.6 oz pure alcohol) occasional use when not AUDIT-C Answer Date Recorded Q1: How often do you have a drink containing alcohol? Never 12/02/2022 Q2: How many drinks containi ng alcohol do you have on a typical day when you are drinking? Patient does not drink Q3: How often do you have si x or more drinks on one occasion? Never 12/02/2022 Mcdonough Depression Scale Answer Date Recorded Mcdonough Depression Scale Total 9 01/14/2023 The thought of harming myself has occurred to me . Unrecognized value 01/14/2023 Abuse Screen Answer Date Recorded Feels Unsafe at Home or Work/School no 12/02/2022 Feels Threatened by Someone no 11/23 Does Anyone Try to Keep You From Having Contact with Others or Doing Things Outside Your Home? no 12/02/2022 Physical Signs of Abuse Present no 12/02/2022 Housing Stability Answer Date Recorded Current Living Arrangements home 09/25 Potentially Unsafe Housing Conditions Not on jennie e 10/22/2022 Disabilities Answer Date Recorded Difficulty Concentrating, Remembering or Making Decisions no 12/02/2022 Difficulty Managing Errands Independently no 12/02/2022 Comments Unknown Sex and Gender Information Value Date Recorded Sex Assigned at Not on file Legal Sex Female 1:20 PM EDT Gender Identity Not on file Sexual Orientation Not on file Last Filed Vital Signs Vital Sign Reading Time Taken Comments Blood Pressure 120/78 10/11/2024 11:33 AM EST Pulse 75 12/04/2022 8:12 AM EST Temperature 36.9 C (98.5 F) 12/04/2022 8:12 AM EST Respiratory Rate 16 12/04/2022 8:12 AM EST Oxygen Saturation 96% 10/24/2022 11:54 AM EST Inhaled Oxygen Concentration - - Weight 78.1 kg (172 lb 3.2 oz) 10/11/2024 11:33 AM EST Height 160 cm (5' 3 ) 10/11/2024 11:33 AM EST Body Mass Index 30.5 10/11/2024 11:33 AM EST Plan of Treatment Health Maintenance Due Date Last Done Comments Annual Gynecologic Pelvic an d Breast Exam 1985 ANNUAL PHYSICAL 04/07/2022 INFLUENZA VACCINE 06/23/2025 10/15/2022, 08/24/2019, 09/22/2017 PAP SMEAR 01/14/2026 01/14/2023 TDAP/TD VACCINES (2 - Td or Tdap) 10/15/2032 10/15/2022 HEPATITIS C SCREENING Completed 05/07/2022 Pneumococcal Vaccine 0-49 Aged Out No longer eligible based on patient's age to complete this topic Procedures Procedure Name Priority Date/Time Associated Diagnosis Comments LIQUID-BASED PAP SMEAR, [facility] ([facility]) Routine 01/14/2023 2:39 PM EST follow-up OBSTETRIC PANEL Routine 05/07/2022 2:40 PM EDT 9 weeks gestation of from Last 3 Months or Most Recently Relevant to Health Maintenance Results * LIQUID-BASED PAP SMEAR, [facility] ([facility]) (01/14/2023 2:39 PM EST) Reference Lab Report [facility] [address] [place] [address] or [phone] Deacon Shepherd M.D., Assistant Auditor PATIENT NAME LABORATORY NO. CHARITY JULIEN. [id number] AGE SEX SSN CLIENT REF # [facility] ([facility]EL[facility]) 37 1985 F [id number] REQUESTING MThai. [place] [address] NIGHAT BARRON DATE COLLECTED DATE RECEIVED DATE REPORTED 01/14/2023 01/14/2023 01/16/2023 ThinPrep Pap with Cytyc Imaging DIAGNOSIS: Negative for intraepithelial lesion or malignancy Multiple factors can influence accuracy of Pap tests; therefore, screening at regular intervals is necessary for early cancer detection. SPECIMEN ADEQUACY: SATISFACTORY FOR EVALUATION Transformation zone is present. SOURCE OF SPECIMEN: CERVICAL/ENDOCERVI CHRIS SLIDES: 1 CLINICAL HISTORY: follow-up HPV HR-HPV POOL: Negative The Aptima HPV assay is an in vitro nucleic acid amplification test for the qualitative detection of E6/E7 viral messenger RNA from 14 high risk types of HPV in cervical specimens. The high risk HPV types detected include: 16, 18, 31, 33, 35, 39, 45, 51, 52, 56, 58, 59, 66, 68 HOME HEALTH CARE CASE MANAGER: AMOL ORDAZ(ASCP) CPT CODES: 07990, 85714 01/16/2023 10:10 AM EST [facility] ThinPrep Vial Collection / Unknown 01/14/2023 2:39 PM EST 01/14/2023 2:39 PM EST Nighat Barron MD PATHOLOGY/CYTOLOGY ORDERABLES Fi nal Result [facility]
[address] [place] [address], * Obstetric Panel (05/07/2022 2:40 PM EDT) Hepatitis B Surface Ag Negative Negative [facility] Hep C Virus Ab 0.1 0.0 - 0.9 s/co ratio [facility] Comment: Negative: < 0.8 Indeterminate: 0.8 - 0.9 Positive: > 0.9 HCV antibody alone does not differentiate between previous resolved infection and active infection. The CDC and current clinical guidelines recommend that a positive HCV antibody result be followed up with an HCV RNA test to support the diagnosis of acute HCV infection. [facility] offers Hepatitis C Virus (HCV) RNA, Diagnosis, CORINNE (897894) and Hepatitis C Virus (HCV) Antibody with reflex to Quantitative Real-time PCR (403440). RPR Non Reactive Non Reactive [facility] Rubella Antibodies, IgG 4.47 Immune >0.99 index [facility] Comment: Non-immune <0.90 Equivocal 0.90 - 0.99 Immune >0.99 ABO Type O [facility] Rh Factor Positive [facility] Comment: Please note: Prior records for this patient's ABO / Rh type are not available for additional verification. Antibody Screen Negative Negative [facility] WBC 9.6 3.4 - 10.8 x10E3/uL [facility] RBC 3.96 3.77 - 5.28 x10E6/uL [facility] Hemoglobin 11.8 11.1 - 15.9 g/dL [facility] Hematocrit 35.9 34.0 - 46.6 % [facility] MCV 91 79 - 97 fL [facility] MCH 29.8 26.6 - 33.0 pg [facility] MCHC 32.9 31.5 - 35.7 g/dL [facility] RDW 12.1 11.7 - 15.4 % [facility] Platelets 315 150 - 450 x10E3/uL [facility] Neutrophil Rel % 65 Not Estab. % [facility] Lymphocyte Rel % 23 Not Estab. % [facility] Monocyte Rel % 7 Not Estab. % [facility] Eosinophil Rel % 3 Not Estab. % [facility] Basophil Rel % 1 Not Estab. % [facility] Neutrophils Absolute 6.4 1.4 - 7.0 x10E3/uL [facility] Lymphocytes Absolute 2.2 0.7 - 3.1 x10E3/uL [facility] Monocytes Absolute 0.7 0.1 - 0.9 x10E3/uL [facility] Eosinophils Absolute 0.3 0.0 - 0.4 x10E3/uL [facility] Basophils Absolute 0.1 0.0 - 0.2 x10E3/uL [facility] Immature Granulocyte Rel % 1 Not Estab. % [facility] Immature Grans Absolute 0.1 0.0 - 0.1 x10E3/uL [facility] Blood 05/07/2022 2:40 PM EDT 05/07/2022 Narrative [facility] - 05/10/2022 8:07 PM EDT Performed at: - [address] [id number] Marketing Data Specialist: Devante Paniagua PhD, Phone: [phone] Patient Fasting: N us Nighat Barron MD LAB BLOOD ORDERABLES Final Resul t [facility] ([facility]) [address] [place] [address], [facility] [address] [place] [address], from Last 3 Months or Most Recently Relevant to Health Maintenance Insurance [facility] PPO Advance Directives * CPR (Attempt to Resuscitate) (Latest Code Status on File) Date Activated Date Inactivated Comments 12/02/2022 9:02 PM 12/04/2022 3:43 PM Question Answer Comments Code Status (Patient has no pulse and is not breathing): CPR (Attempt to Resuscitate) Medical Interventions (Patie nt has pulse or is breathing): Full * CPR (Attempt to Resuscitate) Date Activated Date Inactivated Comments 10/22/2022 9:55 PM 10/24/2022 5:00 PM Question Answer Comments Code Status (Patient has no pulse and is not breathing): CPR (Attempt to Resuscitate) Medical Interventions (Patie nt has pulse or is breathing): Full Support Level Of Support Discussed With: Patient Release to patient: Routine Release Care Teams Second Hand Relationship Specialty Start Date End Date Zohra Bazzi PA [address] [place] [address] PCP - General Physician Bead Trimmer 10/06/24
== END 2025-10-16 23:59 | disposition home or self-care (01) ==
LOC: LAB 16:16
PROVIDERS: Visit Provider Nurse Practitioner Psychiatric/Mental Health
DX: F90.0 Attention-deficit hyperactivity disorder, predominantly inattentive type (principal); F33.0 Major depressive disorder, recurrent, mild